=== PATIENT | female | born 1930 | race Two or more races ===

== ENCOUNTER 2022-03-07 08:39 | Day surgery (SDC) | payer OTHER ==
[~2022-03-07] VITALS: Ht 154.9 cm; Wt 45.4 kg
[~2022-03-07 08:39] MED LIST: APIX5TAB PO; ATOR20TA50 PO; CALC1TAB92 PO; COEN100C15 PO; MET50T PO; VALS1TAB59 PO
[2022-03-07] MEDS ORDERED: ceFAZolin 1GM/50ML 50 ML IV ONE (10:03)
[2022-03-07] MEDS ORDERED: TRANEXAMIC ACID 0 ML ONE (10:25)
[2022-03-07] MEDS ORDERED: BUPIVACAINE W/ EPINEPH 0.5% INJ 50ML MDV IJ ONE (10:25)
[2022-03-07] MEDS ORDERED: EPINEPHrine HCL 1 MG/1 ML AMP ONE (10:25)
[2022-03-07] MEDS ORDERED: VANCOMYCIN HCL 1000 MG VL ONE (10:29)
[2022-03-07] MEDS ORDERED: KETOROLAC TROMETH 30 MG/ML 1ML VIAL ONE (10:29)
[2022-03-07] MEDS ORDERED: fentaNYL CITRATE 100 MCG/2 ML VL ONE (10:32)
[2022-03-07] MEDS ORDERED: MIDAZOLAM HCL 2MG/2ML 2ml VIAL (1mg/ml) ONE (10:33)
[2022-03-07] MEDS ORDERED: SUCCINYLCHOLINE CHLORIDE 20 MG/ML 10ML VIAL IV ONE (10:35)
[2022-03-07] MEDS ORDERED: ONDANSETRON HCL 4 MG/2 ML VIAL ONE (10:39)
[2022-03-07] MEDS ORDERED: LIDOCAINE 2% (LOCAL ANESTH.) PF 5ml SDV ONE (10:39)
[2022-03-07] MEDS ORDERED: PROPOFOL 10 MG/ML 20 ML IV ONE (10:40)
[2022-03-07] MEDS ORDERED: SUGAMMADEX 200mg/2ml Vial (100MG/ML) IV ONE (11:59)
[2022-03-07] MEDS ORDERED: HYDROmorphone HCL 2 MG/ML VL/or syr IV PRN (12:00)
[2022-03-07] MEDS ORDERED: ONDANSETRON HCL 4 MG/2 ML VIAL IV PRN (12:00)
[2022-03-07] MEDS ORDERED: hydrALAZINE HCL 20 MG/ML VL ONE (12:07)
[2022-03-07 13:40] VITALS: BP 120/45
== END 2022-03-07 12:13 | disposition home or self-care (01) ==
LOC: SUR 08:39
PROVIDERS: ATTEND Orthopaedic Surgery
DX: T84.84XA Pain due to internal orthopedic prosthetic devices, implants and grafts, initial encounter (principal); I10 Essential (primary) hypertension; I48.91 Unspecified atrial fibrillation; Z20.822 Contact with and (suspected) exposure to COVID-19; Z87.891 Personal history of nicotine dependence; Y83.8 Other surgical procedures as the cause of abnormal reaction of the patient, or of later complication, without mention of misadventure at the time of the procedure
CPT/HCPCS: 20680; 73501; 76000; C1769; J0171; J0330; J0360; J0690; J1170; J1885; J2001; J2250; J2405; J2704; J3010; J3370; U0003